=== PATIENT | male | born 1930 | race Native Hawaiian/Other Pacific Islander ===

== ENCOUNTER 2017-06-09 16:54 | Inpatient (IN) | payer OTHER ==
[~2017-06-09] VITALS: Ht 187.9 cm; Wt 91.7 kg
[~2017-06-09 16:54] MED LIST: ACETAMINOPHEN-H1 TA2 PO; AMARYL; AMLODIPINE BESY10 MG PO; AMOXICILLIN500 M3 PO; FLEXERIL; FLUOXETINE HYDR20 M1 PO; LISINOPRIL; LISINOPRIL/HCTZ1 TA4 PO; LISINOPRIL20 MG PO; NEURONTIN600 MG PO; OPTIVE SENSITI0.4 ML OP; ULTRAM50 MG PO
[2017-06-09 16:57] VITALS: BP 198/93
[2017-06-09 18:18] LABS: BASO # 0.1 10*3/uL (0.0-0.1); BASO % 0.5 % (0.0-1.0); EOS % 0.4 % (1.0-4.0); HEMATOCRIT 44.3 % (42.0-52.0); HEMOGLOBIN 14.8 g/dl (14.0-18.0); LYMPH # 1.1 10*3/uL (1.3-4.4); LYMPH % 11.2 % (27.0-41.0); MEAN CELL VOLUME 94.3 fl (80.0-94.0); MEAN CORPUSCULAR HGB 31.5 pg (27.0-31.0); MEAN CORPUSCULAR HGB CONC 33.4 g/dl (33.0-37.0); MEAN PLATELET VOLUME 10.6 fl (9.6-12.3); MONO # 0.9 10*3/uL (0.1-1.0); MONO % 8.8 % (3.0-9.0); NEUT % 78.8 % (47.0-73.0); PLATELET COUNT AUTOMATED 159 10*3/uL (130-400); RED CELL DISTRI WIDTH 13.4 % (0-14.5); WHITE BLOOD COUNT 10.1 10*3/uL (4.8-10.8)
[2017-06-09 18:21] VITALS: BP 200/88
[2017-06-09 18:27] LABS: INTERNATIONAL NORM RATIO 1.1 (2.0-3.5)
[2017-06-09 18:34] LABS: ALBUMIN 2.9 gm/dl (3.1-4.5); ALKALINE PHOSPHATASE 111 U/L (45-117); BUN 17 mg/dl (7-24); CHLORIDE 108 mmol/L (98-107); CREATININE 1.23 mg/dL (0.70-1.30); POTASSIUM 3.3 mmol/L (3.5-5.1); SGOT/AST 11 IU/L (3-35); SGPT/ALT 9 U/L (12-78); SODIUM 141 mmol/L (136-145); TOTAL PROTEIN 6.8 gm/dL (6.4-8.2)
[2017-06-09 19:46] VITALS: BP 180/110
[2017-06-09 20:37] VITALS: BP 149/64
[2017-06-09 21:00] VITALS: BP 164/72
[2017-06-09 21:15] VITALS: BP 164/72
[2017-06-09] MEDS ORDERED: FLUOXETINE HYDR20 M1 PO (22:05)
[2017-06-09] MEDS ORDERED: NEURONTIN300 MG PO (22:08)
--- NOTE | 2017-06-09 22:19 | NUR ---
A 87, admitted to , under the services of DMITRY Castaneda DO with a diagnosis of EFFUSION OF RIGHT KNEE. Chief complaint is PAIN AND WEAKNESS WHILE STANDING AND AMBULAING & HYPERTENSION. Patient arrived via stretcher from ER. Monitor applied. Initial assessment completed. Vital signs taken and recorded. DMITRY CASTANEDA DO notified of admission to the unit. Orders received. See assessment for past medical history, medications and allergies. Patient and/or family oriented to unit. [address] visitation policy reviewed, Medication Reconciliation competed with patient and family member. Clothing/patient valuable form completed. JE AWAN
--- NOTE | 2017-06-09 22:50 | NUR ---
UNABLE TO PHONE CONSULT IN FOR DR. HAM BECAUSE OF THE WEEKEND HOURS. WILL PASS ON TO DAYSHIFT NURSE.
[2017-06-10] VITALS: BP 175/68
--- NOTE | 2017-06-10 03:35 | NUR ---
Shift chart check completed.
[2017-06-10 05:54] LABS: BASO % 0.1 % (0.0-1.0); HEMATOCRIT 38.3 % (42.0-52.0); HEMOGLOBIN 13.3 g/dl (14.0-18.0); LYMPH # 0.6 10*3/uL (1.3-4.4); LYMPH % 8.7 % (27.0-41.0); MEAN CELL VOLUME 93.6 fl (80.0-94.0); MEAN CORPUSCULAR HGB 32.5 pg (27.0-31.0); MEAN CORPUSCULAR HGB CONC 34.7 g/dl (33.0-37.0); MEAN PLATELET VOLUME 11.3 fl (9.6-12.3); MONO # 0.1 10*3/uL (0.1-1.0); NEUT # 6.3 10*3/uL (2.3-7.9); NEUT % 88.9 % (47.0-73.0); PLATELET COUNT AUTOMATED 144 10*3/uL (130-400); RED BLOOD COUNT 4.09 10*6/uL (4.50-5.90); RED CELL DISTRI WIDTH 13.4 % (0-14.5); WHITE BLOOD COUNT 7.1 10*3/uL (4.8-10.8)
[2017-06-10 06:15] LABS: ALBUMIN 2.3 gm/dl (3.1-4.5); ALKALINE PHOSPHATASE 101 U/L (45-117); BUN 22 mg/dl (7-24); CHLORIDE 110 mmol/L (98-107); CHOLESTEROL 165 mg/dL (<200); CREATININE 1.09 mg/dL (0.70-1.30); HDL CHOLESTEROL 38 mg/dl (40-60); LDL CHOLESTEROL 111 mg/dL (9-159); MAGNESIUM 2.3 mg/dL (1.5-2.1); PHOSPHOROUS 1.9 mg/dL (2.5-4.9); SGOT/AST 11 IU/L (3-35); SGPT/ALT 10 U/L (12-78); SODIUM 140 mmol/L (136-145); TOTAL PROTEIN 5.9 gm/dL (6.4-8.2); TRIGLYCERIDES 79 mg/dl (<150); VLDL CHOLESTEROL 16 mg/dL (6-40)
[2017-06-10 06:18] LABS: ACT PARTIAL THROMBO TIME 26.9 SECONDS (20.8-31.5)
--- NOTE | 2017-06-10 06:37 | NUR ---
PATIENT HAD A DIFFICULT TIME VOIDING THIS MORNING. FINALLY VOIDED 300 AND PVR 337 OF DARK TIARRA URINE.
[2017-06-10 07:39] LABS: VITAMIN D, 25-HYDROXY 31.7 ng/mL (30-100)
[2017-06-10 08:00] VITALS: BP 175/75
--- NOTE | 2017-06-10 08:04 | NUR ---
DR. HAM'S OFFICE STAFF NOTIFIED OF CONSULT RE: JOINT EFFUSION
--- NOTE | 2017-06-10 08:48 | NUR ---
MEDICATED WITH PRN PO DULCOLAX FOR CONSTIPATION.
[2017-06-10 12:00] VITALS: BP 161/77
--- NOTE | 2017-06-10 14:33 | NUR ---
PHYSICAL THERAPY PAtient evaluated on 4, full evaluation to follow. Continue with PT as per plan of care with fall, right knee effusion and pian and acute debility precautions. SNF for impaired mobility versus home with home health RN and PT. PAtient is moderate complexity via chart review, tests and evaluation: [id number]. Thank you for this referral. Chel Gutiérrez,PT
--- NOTE | 2017-06-10 14:42 | NUR ---
PATIENT HAVING MULTIPLE PAC'S/IRREGULAR HEART RATE, WHOLESALE ACCOUNT MANAGER NOTIFIED THAT PATIENT MAY POSSIBLY BE HAVING AFIB D/T MANY P WAVES NOT VISIBLE AND RATE REMAINS IRREGULAR. STAT EKG OBAINED, NSR W/BBB NOTED AT TIME OF EKG, PATIENT CONTINUES TO HAVE FREQUENT PAC'S AND IRREGULAR RHTYTHM.
--- NOTE | 2017-06-10 14:57 | NUR ---
PATIENT HAVING URGE TO VOID BUT HAS NOT VOIDED THIS SHIFT. BLADDER SCANNED FOR >999ML URINE AND OBTAINED ORDER TO STRAIGHT CATH X 1.
[2017-06-10 16:00] VITALS: BP 168/77
--- NOTE | 2017-06-10 16:48 | NUR ---
PATIENT ABLE TO VOID 150ML WITH DIFFICULTY/HESITANCY, CLEAR DARK TIARRA URINE. ATTEMPTED STRAIGHT CATHETERIZATION, UNABLE TO MANEUVER PROSTATE, ATTEMPTED STRAIGHT CATH WITH 22FR COUDE CATHETER, UNABLE TO OBTAIN URINE. 2ND RN ATTEMPTED WITH 22FR COUDE CATHETER, UNABLE TO OBTAIN URINE. PATIENT ABLE TO VOID 150 ADDITIONAL URINE AFTER THE ATTEMPTS, STATES FEELING SOME RELIEF OF BLADDER URGE AND PRESSURE. ADMINISTERED FIRST DOSE OF FLOMAX (NEW ORDER) AND TITLE VEHICLE SERVICE ATTENDANT ANA LILIA NOTIFIED THAT URINE UNOBTAINABLE D/T UNABLE TO PASS CATHETER VIA URETHRA D/T RESTANCE. PER TITLE VEHICLE SERVICE ATTENDANT, PATIENT TO BE MONITORED FOR INTAKE AND OUTPUT AND HE WILL BE SEEN IN THE MORNING.
--- NOTE | 2017-06-10 17:32 | NUR ---
MEDICATED WITH MILK OF MAGNESIA FOR CONSTIPATION; DULCOLAX NOT YET EFFECTIVE.
--- NOTE | 2017-06-10 17:39 | NUR ---
PATIENT HAVING SOFT, SMALL AMOUNT OF BM, INADEQUATE RESULT OF LAXATIVE SO FAR, PER PATIENT.
--- NOTE | 2017-06-10 18:42 | NUR ---
NOTIFIED DR. HAM'S AFTER HOURS ANSWERING SERVICE OF THE CONSULT RE: RIGHT KNEE EFFUSION.
--- NOTE | 2017-06-10 18:46 | NUR ---
DR. HAM IS ENTERING LAB ORDERS FROM [facility].
[2017-06-10 20:00] VITALS: BP 170/66
--- NOTE | 2017-06-10 20:10 | NUR ---
PATIENT RESTING IN BED. STATES HIS KNEE PAIN IS AT A 0 RIGHT NOW AND THE SWELLING HAS GONE DOWN A LOT. NO SXS OF DISTRESS, RESPIRATIONS EASY/REGULAR. CALL LIGHT IS IN REACH. WILL MONITOR
[2017-06-11] VITALS: BP 143/65
--- NOTE | 2017-06-11 00:51 | NUR ---
PATIENT SLEEPING, NO SXS OF DISTRESS, CALL LIGHT IN REACH
--- NOTE | 2017-06-11 03:30 | NUR ---
PATIENT IS RESTING QUIETLY IN BED WITH NO VOICED COMPLAINTS AT THIS TIME. RESPIRATIONS EASY/REGULAR. NO SXS OF DISTRESS. CALL LIGHT IS IN REACH. WILL CONTINUE TO MONITOR.
--- NOTE | 2017-06-11 04:20 | NUR ---
BLADDER SCANNED PATIENT WITH PVR 20 ML. PATIENT ALSO WANTED TO GET UP AND WALK THE HALLS. HE WALKED A SHORT DISTANCE OUT OF HIS ROOM WITH WALKER ASSISTANCE AND RN. HE TOLERATED IT WELL AND STATED IT MADE HIS KNEE FEEL 10 TIMES BETTER. HE IS NOW OOB IN CHAIR AND STATES HE IS READY TO GO HOME NOW. RESPIRATIONS EASY/REGULAR, NO SXS OF DISTRESS. CALL LIGHT IS IN REACH. WILL MONITOR.
[2017-06-11 05:54] LABS: IRON 46 ug/dL (65-175); TOTAL IRON BINDING CAPACITY 192 ug/dl (250-450)
[2017-06-11 05:56] LABS: RETICULOCYTE % 1.47 % (0.50-2.50)
--- NOTE | 2017-06-11 06:45 | NUR ---
PATIENT WAS PLEASANT/COOPERATIVE THROUGHOUT SHIFT. NO VOICED COMPLAINTS. RESPIRATIONS EASY/REG. CALL LIGHTIS IN REACH.
[2017-06-11 08:00] VITALS: BP 142/71
--- NOTE | 2017-06-11 08:00 | NUR ---
IN RECLINER AWAKE ALERT AND ORIENTED X3, NO S/S OF DISTRESS. STATES RIGHT KNEE IS FEELING A LOT BETTER TODAY AND THAT IT DOES NOT HURT BAD. NO S/S OF DISTRESS NOTED, SEE ASSESS. WILL CONT TO MONITOR. CALL LIGHT IN REACH.
--- NOTE | 2017-06-11 08:04 | NUR ---
PHYSICAL THERAPY Pt seen this AM 1:1 for his physical therapy treatment. Transfer supine/sit MOD A X 1, sitting balance from [facility] X 1, to supervision x 1 after 9 min. Feroz said that his right knee, he was not having as much pain this morning. Transfer sit/stand and up on wheeled walker standing balance MOD A X 1, with cueing for standing balance and just to stand. Followed by gait with W/W total 35' X 1, MOD A X 1, cueing to stand tall and each step to just lock his knees out and he could. Pt not safe up ambulating by himself he would fall. Pt up in his bedside chair call light, and tray in front. Nursing in at this time 24 min. TOMAS GUERRERO TECHNICAL TRAINING SPECIALIST.
[2017-06-11 08:13] LABS: BASO % 0.1 % (0.0-1.0); HEMATOCRIT 40.5 % (42.0-52.0); HEMOGLOBIN 13.7 g/dl (14.0-18.0); LYMPH # 1.4 10*3/uL (1.3-4.4); LYMPH % 10.7 % (27.0-41.0); MEAN CELL VOLUME 94.4 fl (80.0-94.0); MEAN CORPUSCULAR HGB 31.9 pg (27.0-31.0); MEAN CORPUSCULAR HGB CONC 33.8 g/dl (33.0-37.0); MEAN PLATELET VOLUME 11.2 fl (9.6-12.3); MONO % 7.7 % (3.0-9.0); NEUT # 10.2 10*3/uL (2.3-7.9); NEUT % 81.2 % (47.0-73.0); PLATELET COUNT AUTOMATED 159 10*3/uL (130-400); RED BLOOD COUNT 4.29 10*6/uL (4.50-5.90); RED CELL DISTRI WIDTH 13.2 % (0-14.5); WHITE BLOOD COUNT 12.6 10*3/uL (4.8-10.8)
--- NOTE | 2017-06-11 09:00 | NUR ---
case management talked with patient yesterday regarding discharge plans, he lives at home with his daughter, was getting around independently until lately, has a cane and walker at home, patient stated that he wanted to go home with his daughter and refused any home services. today case management again talked with patient, informed him that physical therapy recommendations were a short term shelter, patient refused this, stated that he wanted to go home, also discussed with him VNA and he was receptive to this, patient was given local companies, and chose [facility], meeting/event planner will send referral to [facility] for when patient is medically stable for discharge
[2017-06-11 11:03] LABS: FERRITIN 102.3 ng/mL (22.0-322.0)
[2017-06-11 12:00] VITALS: BP 145/65
--- NOTE | 2017-06-11 14:30 | NUR ---
DR HAM CAME TO SEE PT. CONSENT OBTAINED TO ASPIRATE FLUID FROM RIGHT KNEE. PROCEDURE DONE AND PT TOLERATED WELL.
--- NOTE | 2017-06-11 15:00 | NUR ---
LISETH NOTIFIED PT HAS NOT VOIDED THIS SHIFT AFTER HE STATED THAT HE HAS, BLADDER SCANNED HIM FOR >999. LISETH SUNG CAME TO FLOOR AND PUT A ACEVEDO CATH IN HIM. PT TOLERATED. IMMEDIATE RETURN OF BLOOD TINGED URINE. WILL CONT TO MONITOR.
[2017-06-11 15:19] LABS: BILIRUBIN NEGATIVE (NEGATIVE); BLOOD 3+ (NEGATIVE); CLARITY CLEAR (CLEAR); COLOR YELLOW (YELLOW); GLUCOSE NEGATIVE (NEGATIVE); KETONE NEGATIVE (NEGATIVE); LEUKO ESTERASE NEGATIVE (NEGATIVE); NITRITE NEGATIVE (NEGATIVE); SPECIFIC GRAVITY 1.025 (1.005-1.030); UROBILINOGEN 0.2 E.U./dl (0.2-1.0)
[2017-06-11 15:34] LABS: BACTERIA TRACE; FINE GRANULAR CAST 0-2; RBC TNTC rbc/hpf (0-2)
[2017-06-11 16:00] VITALS: BP 146/63
--- NOTE | 2017-06-11 17:51 | NUR ---
PHYSICIAN WAS NOTIFIED OF DR. TOMAS BRASHER. RESPONSE OF NOTIFICATION WAS NO NEW ORDERS. REYNALDO VARGAS
[2017-06-11 18:56] LABS: BODY FLUID WBC 1800 /uL
[2017-06-11 20:00] VITALS: BP 151/68
--- NOTE | 2017-06-11 20:10 | NUR ---
PATIENT RESTING IN BED. RESPIRATIONS EASY/REG WITH NO SXS OF DISTRESS. NO VOICED COMPLAINTS AT THIS TIME. HEPARIN DRIP MAINTAINED PER ORDER. HE HAS A ANASTASIA BANDAGE TO HIS LEFT FOOT THAT HE IS REFUSING TO BE REMOVED. EXPOSED SKIN IS DRY. PPP. CALL LIGHT IN REACH. WILL MONITOR.
--- NOTE | 2017-06-11 20:15 | NUR ---
PATIENT RESTING IN BED WATCHING TV. NO COMPLAINTS AT THIS TIME. NO SXS OF DISTRESS. RESPIRATIONS EASY/REGULAR. DENIES PAIN. ACEVEDO IS DRAINING DARK TIARRA/BLOODY URINE. CALL LIGHT IS IN REACH. WILL MONITOR.
[2017-06-12] VITALS: BP 148/71
[2017-06-12 06:10] LABS: HEMATOCRIT 37.5 % (42.0-52.0); HEMOGLOBIN 12.6 g/dl (14.0-18.0); LYMPH # 0.9 10*3/uL (1.3-4.4); LYMPH % 8.9 % (27.0-41.0); MEAN CELL VOLUME 93.3 fl (80.0-94.0); MEAN CORPUSCULAR HGB 31.3 pg (27.0-31.0); MEAN CORPUSCULAR HGB CONC 33.6 g/dl (33.0-37.0); MEAN PLATELET VOLUME 11.4 fl (9.6-12.3); MONO # 0.6 10*3/uL (0.1-1.0); MONO % 5.8 % (3.0-9.0); NEUT # 8.4 10*3/uL (2.3-7.9); PLATELET COUNT AUTOMATED 160 10*3/uL (130-400); RED BLOOD COUNT 4.02 10*6/uL (4.50-5.90); RED CELL DISTRI WIDTH 13.2 % (0-14.5); WHITE BLOOD COUNT 9.9 10*3/uL (4.8-10.8)
[2017-06-12 06:37] LABS: ALBUMIN 2.2 gm/dl (3.1-4.5); ALKALINE PHOSPHATASE 86 U/L (45-117); BUN 28 mg/dl (7-24); CHLORIDE 109 mmol/L (98-107); CREATININE 1.04 mg/dL (0.70-1.30); POTASSIUM 4.3 mmol/L (3.5-5.1); SGOT/AST 7 IU/L (3-35); SGPT/ALT 10 U/L (12-78); SODIUM 139 mmol/L (136-145); TOTAL PROTEIN 5.3 gm/dL (6.4-8.2)
[2017-06-12 08:00] VITALS: BP 150/80
[2017-06-12 08:21] LABS: BF MACROPHAGES 6 %; BF MONOCYTES 3 %; BF NEUTROPHILS 91 %
--- NOTE | 2017-06-12 08:25 | NUR ---
IN BED AWAKE ALERT AND ORIENTED X3, WORKING WITH THERAPY. NO S/S OF DISTRESS. RIGHT KNEE SWELLING IS DOWN COMPARED TO YESTERDAY. PT STATES PAIN IS GONE. ACEVEDO DRAINING PATENT YELLOW BLOOD TINGED URINE. NO S/S OF DISTRESS. SEE ASSESS. CALL LIGHT IN REACH. LABS REVIEWED.
--- NOTE | 2017-06-12 10:16 | NUR ---
PER LISETH SUNG OK TO KEEP ACEVEDO CATH IN PLACE DUE TO URINARY RETENTION.
--- NOTE | 2017-06-12 11:44 | NUR ---
PHYSICAL THERAPY Feroz seen this AM 1:1 for his therapy. Pt transfer supine/sit MOD A X 1, sitting balance supervision x 1, X 5 min. Sit/stand, standing balance with wheeled walker MOD A X 1, with cueing for safety. Followed by gait 45' X 1, W/W and MOD TAP PULLER X 1, with cueing for gait safety which he needs. Followed by Feroz using his bathroom, then gait to his bedside chair 15' X 1, pt with call light and phone. TOMAS GUERRERO TIME LOCK EXPERT.
[2017-06-12 12:00] VITALS: BP 151/70
--- NOTE | 2017-06-12 12:57 | NUR ---
PATIENT NOT AVAILALBE FOR ECHO... EATING LUNCH.
[2017-06-12 13:12] LABS: BILIRUBIN NEGATIVE (NEGATIVE); BLOOD 3+ (NEGATIVE); CLARITY CLOUDY (CLEAR); COLOR YELLOW (YELLOW); GLUCOSE 2+ (NEGATIVE); KETONE NEGATIVE (NEGATIVE); LEUKO ESTERASE NEGATIVE (NEGATIVE); NITRITE NEGATIVE (NEGATIVE); PH 5.5 (5.0-9.0); SPECIFIC GRAVITY 1.025 (1.005-1.030)
[2017-06-12 13:17] LABS: RBC TNTC rbc/hpf (0-2)
[2017-06-12 14:06] LABS: ACID FAST SMEAR Negative (.); ACID FAST SPEC PROCESSING Concentration (.)
--- NOTE | 2017-06-12 14:45 | NUR ---
ORDER RECEIVED TO REMOVE CURTIS DELATORRE FROM DR MULLER. SPOKE TO LISETH SUNG AND SHE SAID YES OK TO REMOVE THAT SHE SPOKE WITH DR MULLER.
[2017-06-12 16:00] VITALS: BP 163/59
[2017-06-12 20:00] VITALS: BP 113/88
[2017-06-13] VITALS: BP 115/82
--- NOTE | 2017-06-13 00:08 | NUR ---
PATIENT RESTIN OOB IN CHAIR. NO VOICED COMPLAINTS AT THIS TIME. HEPARIN DRIP MAINTAINED ORDERED. RESPIRATIONS EASY/REGULAR. CALL LIGHT IN REACH.
--- NOTE | 2017-06-13 03:19 | NUR ---
SLEEPING. NO SXS OF DISTRESS. CALL LIGHT IN REACH
--- NOTE | 2017-06-13 05:23 | NUR ---
SPOKE TO DR NORMAN REGARDING PATIENT NOT VOIDING SINCE CATHETER REMOVAL. I BLADDER SCANNED WITH A RESULT OF >999. ORDERS TO STRAIGHT CATH RECEIVED.
--- NOTE | 2017-06-13 06:02 | NUR ---
ATTEMPTED TO STRAIGHT CATH PATIENT. HE WAS ONLY ABLE TO URINATE SMALL AMOUNTS AROUND THE CATHETER. RESCANNED PATIENT WITH RESULTS OF >546. ATTEMPTED COUDE AND RESISTANCE MET. DR NORMAN WAS NOTIFIED AND INSTRUCTED TO TRY AGAIN IN A LITTLE WHILE.
--- NOTE | 2017-06-13 06:39 | NUR ---
[facility] NURSE ATTEMPTED CATHETERIZATION. SHE ALSO MET RESISTANCE AND WAS UNABLE TO DRAIN BLADDER. SCANNED AND RESULT WAS >700. DR NORMAN NOTIFIED. NO NEW ORDERS AT THIS TIME
[2017-06-13 08:00] VITALS: BP 168/84
[2017-06-13] MEDS ORDERED: FLOMAX0.4 MG PO (09:18)
[2017-06-13] MEDS ORDERED: FEROSUL325 MG PO (09:18)
--- NOTE | 2017-06-13 10:35 | NUR ---
Patient is being discharged to home with home health via [facility]. Recieved order, faxed clinicals to
--- NOTE | 2017-06-13 11:13 | NUR ---
PHYSICAL THERAPY CO-SIGN I approve of the Phyical Therapy notes written above. SULMA STEVEN PT
--- NOTE | 2017-06-13 11:32 | NUR ---
DISCHARGED IN CARE OF DAUGHTER. PT WAS GOING TO DR LUDWIG OFFICE. INSTRUCTIONS AND PERSCRIPTIONS REVIEWED WITH PT AND DAUGHTER.
== END 2017-06-13 10:08 | disposition home health service (06) | DRG 565 ==
LOC: ED 16:54 → EDHOLD 20:19 → 4E 20:19
PROVIDERS: Hospitalist; Orthopaedic Surgery; Physician Assistant; Registered Nurse; ADMIT Internal Medicine
PROC: 0S9C3ZZ Drainage of Right Knee Joint, Percutaneous Approach (ICD-10-PCS; principal; 2017-06-11)
DX: M25.461 Effusion, right knee (principal); E44.0 Moderate protein-calorie malnutrition; E11.65 Type 2 diabetes mellitus with hyperglycemia; E83.41 Hypermagnesemia; I10 Essential (primary) hypertension; E83.39 Other disorders of phosphorus metabolism; E83.51 Hypocalcemia; M71.21 Synovial cyst of popliteal space [Baker], right knee; Z96.643 Presence of artificial hip joint, bilateral; R33.9 Retention of urine, unspecified; D50.9 Iron deficiency anemia, unspecified; Z72.0 Tobacco use; Z79.899 Other long term (current) drug therapy; Z71.6 Tobacco abuse counseling; Z68.25 Body mass index [BMI] 25.0-25.9, adult

== ENCOUNTER 2017-10-03 13:28 | Inpatient (IN) | payer OTHER ==
[~2017-10-03] VITALS: Ht 177.8 cm; Wt 94.5 kg
[~2017-10-03 13:28] MED LIST changes: +FEROSUL325 MG PO; +FLOMAX0.4 MG PO; +NEURONTIN300 MG PO
[2017-10-03 13:46] VITALS: BP 150/60
[2017-10-03 13:53] LABS: BASO % 0.4 % (0.0-1.0); EOS # 0.1 10*3/uL (0.0-0.4); EOS % 0.5 % (1.0-4.0); HEMATOCRIT 39.5 % (42.0-52.0); HEMOGLOBIN 13.7 g/dl (14.0-18.0); LYMPH # 1.1 10*3/uL (1.3-4.4); LYMPH % 11.8 % (27.0-41.0); MEAN CELL VOLUME 91.2 fl (80.0-94.0); MEAN CORPUSCULAR HGB 31.6 pg (27.0-31.0); MEAN CORPUSCULAR HGB CONC 34.7 g/dl (33.0-37.0); MEAN PLATELET VOLUME 10.4 fl (9.6-12.3); MONO # 0.7 10*3/uL (0.1-1.0); NEUT # 7.4 10*3/uL (2.3-7.9); NEUT % 80.1 % (47.0-73.0); PLATELET COUNT AUTOMATED 160 10*3/uL (130-400); RED BLOOD COUNT 4.33 10*6/uL (4.50-5.90); RED CELL DISTRI WIDTH 14.6 % (0-14.5); WHITE BLOOD COUNT 9.3 10*3/uL (4.8-10.8)
[2017-10-03 14:08] LABS: ALBUMIN 3.5 gm/dl (3.1-4.5); ALKALINE PHOSPHATASE 128 U/L (45-117); BUN 28 mg/dl (7-24); CHLORIDE 106 mmol/L (98-107); CREATININE 1.48 mg/dL (0.70-1.30); POTASSIUM 3.7 mmol/L (3.5-5.1); SGOT/AST 6 IU/L (3-35); SGPT/ALT 17 U/L (12-78); SODIUM 140 mmol/L (136-145); TOTAL PROTEIN 6.7 gm/dL (6.4-8.2)
[2017-10-03 14:09] LABS: TROPONIN I < 0.015 ng/ml (<0.045)
[2017-10-03 14:49] VITALS: BP 138/60
[2017-10-03 15:49] VITALS: BP 142/60
[2017-10-03 20:00] VITALS: BP 158/86
[2017-10-03 21:12] LABS: BILIRUBIN NEGATIVE (NEGATIVE); BLOOD NEGATIVE (NEGATIVE); CLARITY CLEAR (CLEAR); COLOR YELLOW (YELLOW); GLUCOSE NEGATIVE (NEGATIVE); KETONE NEGATIVE (NEGATIVE); LEUKO ESTERASE NEGATIVE (NEGATIVE); NITRITE NEGATIVE (NEGATIVE); SPECIFIC GRAVITY 1.025 (1.005-1.030)
[2017-10-03 21:24] LABS: WBC 0-2 wbc/hpf (0-5)
[2017-10-04] VITALS: BP 153/59
[2017-10-04 07:17] LABS: BASO # 0.1 10*3/uL (0.0-0.1); BASO % 0.7 % (0.0-1.0); EOS # 0.2 10*3/uL (0.0-0.4); EOS % 2.5 % (1.0-4.0); HEMOGLOBIN 12.1 g/dl (14.0-18.0); LYMPH # 1.9 10*3/uL (1.3-4.4); LYMPH % 27.4 % (27.0-41.0); MEAN CELL VOLUME 91.4 fl (80.0-94.0); MEAN CORPUSCULAR HGB 31.6 pg (27.0-31.0); MEAN CORPUSCULAR HGB CONC 34.6 g/dl (33.0-37.0); MEAN PLATELET VOLUME 10.4 fl (9.6-12.3); MONO # 0.8 10*3/uL (0.1-1.0); MONO % 10.7 % (3.0-9.0); NEUT # 4.1 10*3/uL (2.3-7.9); NEUT % 58.4 % (47.0-73.0); PLATELET COUNT AUTOMATED 143 10*3/uL (130-400); RED BLOOD COUNT 3.83 10*6/uL (4.50-5.90); RED CELL DISTRI WIDTH 14.6 % (0-14.5); WHITE BLOOD COUNT 7.1 10*3/uL (4.8-10.8)
[2017-10-04 07:32] LABS: ALBUMIN 2.9 gm/dl (3.1-4.5); BUN 25 mg/dl (7-24); CHLORIDE 109 mmol/L (98-107); POTASSIUM 3.5 mmol/L (3.5-5.1); SGOT/AST 9 IU/L (3-35); SODIUM 143 mmol/L (136-145)
[2017-10-04 07:40] LABS: ACT PARTIAL THROMBO TIME 25.6 SECONDS (20.8-31.5)
[2017-10-04 07:45] LABS: ALKALINE PHOSPHATASE 102 U/L (45-117); PHOSPHOROUS 2.6 mg/dL (2.5-4.9); SGPT/ALT 11 U/L (12-78); TOTAL PROTEIN 5.5 gm/dL (6.4-8.2)
[2017-10-04 08:00] VITALS: BP 163/72
[2017-10-04 12:00] VITALS: BP 127/56
[2017-10-04 16:00] VITALS: BP 160/62
[2017-10-04 20:00] VITALS: BP 170/72
[2017-10-05] VITALS: BP 164/70
[2017-10-05 07:42] LABS: BASO # 0.1 10*3/uL (0.0-0.1); BASO % 0.7 % (0.0-1.0); EOS # 0.2 10*3/uL (0.0-0.4); EOS % 2.7 % (1.0-4.0); HEMATOCRIT 35.6 % (42.0-52.0); HEMOGLOBIN 12.4 g/dl (14.0-18.0); LYMPH # 1.9 10*3/uL (1.3-4.4); LYMPH % 24.3 % (27.0-41.0); MEAN CELL VOLUME 92.2 fl (80.0-94.0); MEAN CORPUSCULAR HGB 32.1 pg (27.0-31.0); MEAN CORPUSCULAR HGB CONC 34.8 g/dl (33.0-37.0); MEAN PLATELET VOLUME 10.3 fl (9.6-12.3); MONO # 0.8 10*3/uL (0.1-1.0); MONO % 10.2 % (3.0-9.0); NEUT # 4.7 10*3/uL (2.3-7.9); NEUT % 61.6 % (47.0-73.0); PLATELET COUNT AUTOMATED 142 10*3/uL (130-400); RED BLOOD COUNT 3.86 10*6/uL (4.50-5.90); RED CELL DISTRI WIDTH 14.6 % (0-14.5); WHITE BLOOD COUNT 7.7 10*3/uL (4.8-10.8)
[2017-10-05 08:00] VITALS: BP 162/79
[2017-10-05 08:22] LABS: ALBUMIN 2.8 gm/dl (3.1-4.5); ALKALINE PHOSPHATASE 109 U/L (45-117); BUN 19 mg/dl (7-24); CHLORIDE 107 mmol/L (98-107); POTASSIUM 3.5 mmol/L (3.5-5.1); SGOT/AST 16 IU/L (3-35); SGPT/ALT 17 U/L (12-78); SODIUM 139 mmol/L (136-145); TOTAL PROTEIN 5.5 gm/dL (6.4-8.2)
[2017-10-05 12:00] VITALS: BP 155/85
[2017-10-05 16:00] VITALS: BP 171/65
[2017-10-05 20:00] VITALS: BP 163/70
[2017-10-06] VITALS: BP 136/64
[2017-10-06 08:00] VITALS: BP 147/71
[2017-10-06 12:00] VITALS: BP 140/63
[2017-10-06 16:16] VITALS: BP 164/68
[2017-10-06 20:07] VITALS: BP 181/75
[2017-10-07] VITALS: BP 154/65
[2017-10-07 04:00] VITALS: BP 121/75
[2017-10-07 08:00] VITALS: BP 151/68
[2017-10-07 12:00] VITALS: BP 142/62
[2017-10-07 16:00] VITALS: BP 173/71
[2017-10-07 20:00] VITALS: BP 174/68
[2017-10-08] VITALS (9 sets, daily range): BP systolic 135–178; BP diastolic 61–89
[2017-10-08 18:38] LABS: BODY FLUID WBC 2198 /uL
[2017-10-08 19:28] LABS: BF MACROPHAGES 23 %; BF NEUTROPHILS 77 %
[2017-10-09] VITALS: BP 156/81
[2017-10-09 04:00] VITALS: BP 121/52
[2017-10-09 06:58] LABS: ALBUMIN 2.6 gm/dl (3.1-4.5); ALKALINE PHOSPHATASE 92 U/L (45-117); BASO # 0.1 10*3/uL (0.0-0.1); BASO % 0.6 % (0.0-1.0); BUN 20 mg/dl (7-24); CHLORIDE 101 mmol/L (98-107); CREATININE 1.18 mg/dL (0.70-1.30); EOS # 0.2 10*3/uL (0.0-0.4); EOS % 1.5 % (1.0-4.0); HEMATOCRIT 36.9 % (42.0-52.0); HEMOGLOBIN 12.6 g/dl (14.0-18.0); LYMPH % 18.7 % (27.0-41.0); MEAN CELL VOLUME 92.7 fl (80.0-94.0); MEAN CORPUSCULAR HGB 31.7 pg (27.0-31.0); MEAN CORPUSCULAR HGB CONC 34.1 g/dl (33.0-37.0); MEAN PLATELET VOLUME 10.2 fl (9.6-12.3); MONO # 1.5 10*3/uL (0.1-1.0); MONO % 14.1 % (3.0-9.0); NEUT # 6.8 10*3/uL (2.3-7.9); NEUT % 64.6 % (47.0-73.0); PLATELET COUNT AUTOMATED 158 10*3/uL (130-400); RED BLOOD COUNT 3.98 10*6/uL (4.50-5.90); RED CELL DISTRI WIDTH 14.6 % (0-14.5); SGOT/AST 13 IU/L (3-35); SGPT/ALT 22 U/L (12-78); SODIUM 134 mmol/L (136-145); TOTAL PROTEIN 6.2 gm/dL (6.4-8.2); WHITE BLOOD COUNT 10.5 10*3/uL (4.8-10.8)
[2017-10-09 08:00] VITALS: BP 127/58
[2017-10-09 12:00] VITALS: BP 116/50
[2017-10-09 16:00] VITALS: BP 132/58
[2017-10-09 20:00] VITALS: BP 150/60
[2017-10-09 21:56] LABS: BILIRUBIN NEGATIVE (NEGATIVE); BLOOD NEGATIVE (NEGATIVE); CLARITY SL CLOUDY (CLEAR); COLOR YELLOW (YELLOW); GLUCOSE TRACE (NEGATIVE); KETONE NEGATIVE (NEGATIVE); LEUKO ESTERASE NEGATIVE (NEGATIVE); NITRITE NEGATIVE (NEGATIVE); UROBILINOGEN 0.2 E.U./dl (0.2-1.0)
[2017-10-09 22:08] LABS: BACTERIA 1+; MUCOUS 1+
[2017-10-09 22:09] LABS: EPITHELIAL CELLS 0-2
[2017-10-10] VITALS: BP 137/52
[2017-10-10 08:00] VITALS: BP 155/53
[2017-10-10 09:04] LABS: CREATININE 1.39 mg/dL (0.70-1.30); POTASSIUM 3.6 mmol/L (3.5-5.1)
[2017-10-10] MEDS ORDERED: NEURONTIN300 MG PO (10:47)
[2017-10-10 12:00] VITALS: BP 137/57
[2017-10-10 14:37] LABS: BF MACROPHAGES 15 %; BF NEUTROPHILS 85 %
[2017-10-10 14:45] LABS: BODY FLUID WBC 3775 /uL
[2017-10-11 12:09] LABS: ACID FAST SMEAR Negative (.); ACID FAST SPEC PROCESSING Concentration (.)
== END 2017-10-10 15:50 | disposition other institution (70) | DRG 682 ==
LOC: ED 13:28 → EDHOLD 15:19 → 4E 15:19 → EDHOLD 15:29 → 4E 15:35
PROVIDERS: Emergency Medicine; Family Medicine; Internal Medicine; Orthopaedic Surgery; Student in an Organized Health Care Education/Training Program
PROC: 0S9C3ZZ Drainage of Right Knee Joint, Percutaneous Approach (ICD-10-PCS; principal; 2017-10-08)
PROC: 0S9D3ZX Drainage of Left Knee Joint, Percutaneous Approach, Diagnostic (ICD-10-PCS; 2017-10-10)
DX: N17.0 Acute kidney failure with tubular necrosis (principal); G93.41 Metabolic encephalopathy; E11.65 Type 2 diabetes mellitus with hyperglycemia; E11.40 Type 2 diabetes mellitus with diabetic neuropathy, unspecified; F33.9 Major depressive disorder, recurrent, unspecified; G91.2 (Idiopathic) normal pressure hydrocephalus; M25.461 Effusion, right knee; E86.0 Dehydration; D50.9 Iron deficiency anemia, unspecified; N40.1 Benign prostatic hyperplasia with lower urinary tract symptoms; R74.8 Abnormal levels of other serum enzymes; I10 Essential (primary) hypertension; R33.8 Other retention of urine; M25.462 Effusion, left knee; M65.351 Trigger finger, right little finger; Z96.643 Presence of artificial hip joint, bilateral; E78.5 Hyperlipidemia, unspecified; Z79.899 Other long term (current) drug therapy; Z90.89 Acquired absence of other organs; Z87.891 Personal history of nicotine dependence

== ENCOUNTER 2017-10-17 03:37 | Emergency (ER) | payer OTHER ==
[~2017-10-17] VITALS: Ht 185.4 cm; Wt 99.8 kg
[2017-10-17 04:05] LABS: BASO # 0.1 10*3/uL (0.0-0.1); BASO % 0.3 % (0.0-1.0); EOS % 0.3 % (1.0-4.0); HEMATOCRIT 38.9 % (42.0-52.0); HEMOGLOBIN 13.2 g/dl (14.0-18.0); LYMPH # 1.3 10*3/uL (1.3-4.4); LYMPH % 9.1 % (27.0-41.0); MEAN CELL VOLUME 94.2 fl (80.0-94.0); MEAN CORPUSCULAR HGB CONC 33.9 g/dl (33.0-37.0); MEAN PLATELET VOLUME 9.5 fl (9.6-12.3); MONO # 0.9 10*3/uL (0.1-1.0); MONO % 6.2 % (3.0-9.0); NEUT % 82.6 % (47.0-73.0); PLATELET COUNT AUTOMATED 222 10*3/uL (130-400); RED BLOOD COUNT 4.13 10*6/uL (4.50-5.90); RED CELL DISTRI WIDTH 14.6 % (0-14.5); WHITE BLOOD COUNT 14.6 10*3/uL (4.8-10.8)
[2017-10-17 04:13] LABS: ABG BASE EXCESS -3.5 mmol/L (-2.0-2.0); ABG HCO3 19.6 mmol/l (22-26); ABG O2 SATURATION 99.6 % (95-97); ARTERIAL BLOOD GAS PCO2 34.7 mmHg (35-45); ARTERIAL BLOOD GAS PH 7.383 (7.35-7.45)
[2017-10-17 04:15] LABS: ACT PARTIAL THROMBO TIME 24.8 SECONDS (20.8-31.5); INTERNATIONAL NORM RATIO 1.1 (2.0-3.5)
[2017-10-17 04:22] LABS: CREATININE 1.55 mg/dL (0.70-1.30); TOTAL PROTEIN 6.2 gm/dL (6.4-8.2)
[2017-10-17 04:23] LABS: TROPONIN I 0.045 ng/ml (<0.045)
[2017-10-17 05:30] LABS: BILIRUBIN NEGATIVE (NEGATIVE); BLOOD 1+ (NEGATIVE); CLARITY CLEAR (CLEAR); COLOR YELLOW (YELLOW); GLUCOSE NEGATIVE (NEGATIVE); KETONE NEGATIVE (NEGATIVE); LEUKO ESTERASE NEGATIVE (NEGATIVE); NITRITE NEGATIVE (NEGATIVE); PH 5.5 (5.0-9.0); UROBILINOGEN 0.2 E.U./dl (0.2-1.0)
[2017-10-17 05:47] LABS: ABG O2 SATURATION 97.5 % (95-97); ARTERIAL BLOOD GAS PCO2 32.3 mmHg (35-45); ARTERIAL BLOOD GAS PH 7.378 (7.35-7.45)
[2017-10-17 05:51] LABS: WBC 0-2 wbc/hpf (0-5)
[2017-10-17 05:56] VITALS: BP 128/38
== END 2017-10-17 06:33 | disposition short-term general hospital (02) ==
LOC: ED 03:37
PROVIDERS: Student in an Organized Health Care Education/Training Program
DX: A41.9 Sepsis, unspecified organism (principal); J96.00 Acute respiratory failure, unspecified whether with hypoxia or hypercapnia; R65.20 Severe sepsis without septic shock; I44.2 Atrioventricular block, complete; I10 Essential (primary) hypertension; G62.9 Polyneuropathy, unspecified; Z79.899 Other long term (current) drug therapy; Z87.891 Personal history of nicotine dependence

== ENCOUNTER 2017-10-28 11:15 | Emergency (ER) | payer OTHER ==
[~2017-10-28] VITALS: Ht 180.3 cm; Wt 81.6 kg
[2017-10-28 15:35] LABS: HEMATOCRIT 35.7 % (42.0-52.0); HEMOGLOBIN 12.3 g/dl (14.0-18.0); MEAN CORPUSCULAR HGB 31.7 pg (27.0-31.0); MEAN CORPUSCULAR HGB CONC 34.5 g/dl (33.0-37.0); MEAN PLATELET VOLUME 9.5 fl (9.6-12.3); PLATELET COUNT AUTOMATED 226 10*3/uL (130-400); RED BLOOD COUNT 3.88 10*6/uL (4.50-5.90); RED CELL DISTRI WIDTH 14.2 % (0-14.5); WHITE BLOOD COUNT 15.6 10*3/uL (4.8-10.8)
[2017-10-28 15:48] LABS: BUN 26 mg/dl (7-24); CHLORIDE 100 mmol/L (98-107); CREATININE 1.24 mg/dL (0.70-1.30); POTASSIUM 3.7 mmol/L (3.5-5.1); SODIUM 134 mmol/L (136-145)
[2017-10-28 15:49] LABS: ACT PARTIAL THROMBO TIME 27.3 SECONDS (20.8-31.5)
[2017-10-28 16:03] LABS: POLYCHROMASIA SLIGHT; TOTAL CELLS COUNTED 100 #CELLS
[2017-10-28 16:04] LABS: PLATELET SUFFICIENCY NORMAL (NORMAL)
[2017-10-28 16:11] VITALS: BP 166/82
== END 2017-10-28 19:23 | disposition short-term general hospital (02) ==
LOC: ED 11:15
PROVIDERS: Emergency Medicine
DX: R33.9 Retention of urine, unspecified (principal); R05 Cough

== ENCOUNTER 2017-11-07 18:37 | Emergency (ER) | payer OTHER ==
[~2017-11-07] VITALS: Ht 180.3 cm; Wt 99.8 kg
[2017-11-07 19:55] LABS: BASO % 0.4 % (0.0-1.0); EOS # 0.3 10*3/uL (0.0-0.4); EOS % 2.7 % (1.0-4.0); HEMATOCRIT 28.3 % (42.0-52.0); HEMOGLOBIN 9.4 g/dl (14.0-18.0); LYMPH # 1.4 10*3/uL (1.3-4.4); LYMPH % 13.5 % (27.0-41.0); MEAN CELL VOLUME 93.1 fl (80.0-94.0); MEAN CORPUSCULAR HGB 30.9 pg (27.0-31.0); MEAN CORPUSCULAR HGB CONC 33.2 g/dl (33.0-37.0); MEAN PLATELET VOLUME 9.3 fl (9.6-12.3); MONO # 1.3 10*3/uL (0.1-1.0); MONO % 13.2 % (3.0-9.0); NEUT # 6.9 10*3/uL (2.3-7.9); PLATELET COUNT AUTOMATED 259 10*3/uL (130-400); RED BLOOD COUNT 3.04 10*6/uL (4.50-5.90); RED CELL DISTRI WIDTH 13.9 % (0-14.5)
[2017-11-07 19:55] LABS: BILIRUBIN NEGATIVE (NEGATIVE); BLOOD 3+ (NEGATIVE); CLARITY TURBID (CLEAR); COLOR YELLOW (YELLOW); GLUCOSE NEGATIVE (NEGATIVE); KETONE NEGATIVE (NEGATIVE); LEUKO ESTERASE 3+ (NEGATIVE); NITRITE NEGATIVE (NEGATIVE); SPECIFIC GRAVITY 1.025 (1.005-1.030); UROBILINOGEN 0.2 E.U./dl (0.2-1.0)
[2017-11-07 20:06] LABS: BACTERIA 4+; MUCOUS 4+; RBC TNTC rbc/hpf (0-2); WBC TNTC wbc/hpf (0-5)
[2017-11-07 20:10] LABS: ALKALINE PHOSPHATASE 108 U/L (45-117); BUN 25 mg/dl (7-24); CHLORIDE 101 mmol/L (98-107); CREATININE 1.19 mg/dL (0.70-1.30); POTASSIUM 4.9 mmol/L (3.5-5.1); SGOT/AST 11 IU/L (3-35); SGPT/ALT 18 U/L (12-78); SODIUM 133 mmol/L (136-145); TOTAL PROTEIN 5.9 gm/dL (6.4-8.2)
[2017-11-07 21:20] VITALS: BP 140/60
== END 2017-11-07 21:41 | disposition short-term general hospital (02) ==
LOC: ED 18:37
PROVIDERS: Nurse Practitioner Family
DX: N39.0 Urinary tract infection, site not specified (principal); Z87.891 Personal history of nicotine dependence; Z98.890 Other specified postprocedural states; Z96.643 Presence of artificial hip joint, bilateral; Z79.899 Other long term (current) drug therapy; Z88.5 Allergy status to narcotic agent; Z88.6 Allergy status to analgesic agent

== ENCOUNTER 2017-12-19 07:51 | Inpatient (IN) | payer OTHER ==
[~2017-12-19] VITALS: Ht 182.9 cm; Wt 94.4 kg
--- NOTE | ~2017-12-19 | O ---
[place], [place] OPERATIVE NOTE NAME: RAYMUNDO DAUGHERTY UNIT #: [id number] ROOM: 525 DOCTOR: MANE MCGINNIS MD BIRTHDATE: [birth year] DOS: 12/23/2017 GASTROENDOSCOPIC REPORT HISTORY OF PRESENT ILLNESS: An 87-year-old patient who presented with chief complaint of anemia, diarrhea, guaiac positivity, dyspepsia as well as C. diff positivity that recently has been found. PROCEDURE: Today's procedure part of investigation is panendoscopy plus biopsy. PREMEDICATION: Versed and Diprivan. SCOPE: Olympus forward-viewing gastroscope Q10 video. REPORT: After putting the patient in left lateral position and application of lubricant to the scope, the scope was introduced. Thereafter, under direct visualization, I advanced through the length of esophagus without difficulty. Esophagus, cervical, thoracic distally carefully examined and evidence of reflux esophagitis was noticed. Gastric pouch was entered in mid lesser curvature ulceration which is as large as dime with raised borders was noticed. This ulceration was biopsied multiple times. Ruling out dysplastic cells. Gastric pouch consistent with gastritis. Duodenal bulb, second and third part within normal limits. The patient extubated, tolerated procedure well. IMPRESSION: Gastric ulcer in mid lesser curvature, gastritis, reflux esophagitis. PLAN AND DISCUSSION: Resuming soft diet. Continue with PPI therapy despite the fact that we have chance of continuation or extension of the course of C. diff colitis; however, we are going to treat him 2 weeks with vancomycin and eventually he needs a colonoscopy as well. At the present time, gastric ulcer, suspected for carcinoma is going to be a point of concern. Awaiting biopsy results. [place], [place] OPERATIVE NOTE NAME: RAYMUNDO DAUGHERTY UNIT #: [id number] ROOM: 525 DOCTOR: MANE MCGINNIS MD BIRTHDATE: [birth year] MANE MCGINNIS MD CM:OPRECORD:OPERATIVE NOTE 1345 [id number] MANE MCGINNIS MD 12/23/17 1429 interface
--- NOTE | ~2017-12-19 | CON ---
[place], [place] REPORT OF CONSULTATION NAME: RAYMUNDO DAUGHERTY UNIT #: [id number] ROOM: 525 DOCTOR: MANE MCGINNIS MD BIRTHDATE: [birth year] DOS: 12/20/2017 GASTROENTESTINAL CONSULTATION REPORT HISTORY OF PRESENT ILLNESS: An 87-year-old patient who has presented with change in mental status, was admitted on 12/19/2017 with concern of change in mental status. His history of lab records shows white blood cell was 15.7 at that time and H and H of 10 and 31. His lactic acid was 1.1. Urinalysis was active for nitrites. Comprehensive metabolic panel BUN and creatinine, liver function test normal, low protein and low albumin was noticed. Troponin negative. Basic metabolic panel was readdressed. Chest x-ray subtle left basilar opacities was noticed. Urine culture greater than 100,000 bacteria was noticed. MRSA positivity of nares and occult blood positivity of the stool was confirmed. PAST MEDICAL HISTORY: Associated with BPH, urinary retention, history of major depression, metabolic encephalopathy, hypertension, borderline anemia, third degree heart block history. PAST SURGICAL HISTORY: Left hip and right hip prosthesis, tonsillectomy and minor operation. SOCIAL HISTORY: Passive smoker, social alcohol consumer. FAMILY HISTORY: Noncontributory. ALLERGIES: PERCOCET. MEDICATIONS: List at home was reviewed. He has been on iron supplementation, probiotics as reviewed otherwise. No anticoagulant. No antiplatelets. REVIEW OF SYSTEMS: HEENT: Denies double vision, blurry vision. RESPIRATORY: Denies shortness of breath. CARDIOVASCULAR: Denies chest pain. DIGESTIVE SYSTEM: No hematemesis, no hematochezia. PHYSICAL EXAMINATION: GENERAL: Relatively well nourished. HEENT: Head normocephalic, nontraumatic. Mouth and buccal mucosa benign. NECK: Supple, no thyromegaly, no cervical lymphadenopathy. CHEST: Symmetric anatomy, equal expansion. No wheeze, no rhonchi. HEART: Normal sinus rhythm, no gallop, no murmur. ABDOMEN: Soft. No hepato-organomegaly. Bowel sounds present. No pulsatile mass. EXTREMITIES: No cyanosis, no pedal edema. NEUROLOGIC: Appears to be alert partially and partially oriented as well. IMPRESSION: Borderline anemia, urosepsis, metabolic encephalopathy, I see a third-degree block on the records. [place], [place] REPORT OF CONSULTATION NAME: RAYMUNDO DAUGHERTY UNIT #: [id number] ROOM: 525 DOCTOR: RAS QUESADA,MANE BIRTHDATE: [birth year] OTHER ADJUNCTIVE DIAGNOSES: As outlined in past medical, surgical history. PLAN AND DISCUSSION: Antibiotic therapy for UTI, correction of encephalopathy as far as the guaiac positivity. This can be addressed at a later time when issues at hand, particularly the third-degree heart block is addressed. We need an EKG, follow up in Cardiology followup if that is the case. I do not have access to those data right now and his troponin has been negative, however. As far as EGD and colonoscopy that he requires I have questioned him. He cannot answer me if he has had a recent colonoscopy or not and we are in no rollins right now to address endoscopy. I recommend a cardiology consult, otherwise for third-degree block. MANE MCGINNIS MD CM:CONSTR:REPORT OF CONSULTATION 1619 12/21/17 0241 interface
[2017-12-19 07:54] VITALS: BP 105/70
[2017-12-19 08:20] LABS: BILIRUBIN NEGATIVE (NEGATIVE); BLOOD 3+ (NEGATIVE); CLARITY CLOUDY (CLEAR); COLOR YELLOW (YELLOW); GLUCOSE NEGATIVE (NEGATIVE); KETONE NEGATIVE (NEGATIVE); LEUKO ESTERASE 2+ (NEGATIVE); NITRITE POSITIVE (NEGATIVE); PH 8.5 (5.0-9.0); SPECIFIC GRAVITY 1.015 (1.005-1.030); UROBILINOGEN 0.2 E.U./dl (0.2-1.0)
[2017-12-19 08:23] LABS: BASO % 0.3 % (0.0-1.0); EOS # 0.1 10*3/uL (0.0-0.4); EOS % 0.4 % (1.0-4.0); HEMATOCRIT 31.8 % (42.0-52.0); HEMOGLOBIN 10.4 g/dl (14.0-18.0); LYMPH # 0.5 10*3/uL (1.3-4.4); LYMPH % 3.4 % (27.0-41.0); MEAN CELL VOLUME 92.2 fl (80.0-94.0); MEAN CORPUSCULAR HGB 30.1 pg (27.0-31.0); MEAN CORPUSCULAR HGB CONC 32.7 g/dl (33.0-37.0); MEAN PLATELET VOLUME 9.5 fl (9.6-12.3); MONO # 1.1 10*3/uL (0.1-1.0); MONO % 6.9 % (3.0-9.0); NEUT # 13.9 10*3/uL (2.3-7.9); NEUT % 88.6 % (47.0-73.0); PLATELET COUNT AUTOMATED 180 10*3/uL (130-400); RED BLOOD COUNT 3.45 10*6/uL (4.50-5.90); RED CELL DISTRI WIDTH 16.7 % (0-14.5); WHITE BLOOD COUNT 15.7 10*3/uL (4.8-10.8)
[2017-12-19 08:31] LABS: RBC TNTC rbc/hpf (0-2); WBC TNTC wbc/hpf (0-5)
[2017-12-19 08:38] LABS: ALBUMIN 2.8 gm/dl (3.1-4.5); ALKALINE PHOSPHATASE 92 U/L (45-117); BUN 25 mg/dl (7-24); CHLORIDE 106 mmol/L (98-107); CREATININE 1.13 mg/dL (0.70-1.30); POTASSIUM 4.8 mmol/L (3.5-5.1); SGOT/AST 11 IU/L (3-35); SGPT/ALT 17 U/L (12-78); SODIUM 137 mmol/L (136-145); TOTAL PROTEIN 6.3 gm/dL (6.4-8.2)
[2017-12-19 08:42] LABS: TROPONIN I < 0.015 ng/ml (<0.045)
[2017-12-19] MEDS ORDERED: AMLODIPINE BESY10 MG PO (09:05)
[2017-12-19] MEDS ORDERED: DITROPAN XL5 MG PO (09:06)
[2017-12-19] MEDS ORDERED: ERGOCAL2500 UNIT PO (09:06)
[2017-12-19] MEDS ORDERED: IRON325 M1 PO (09:07)
[2017-12-19] MEDS ORDERED: PROZAC20 MG PO (09:08)
[2017-12-19] MEDS ORDERED: FLOMAX0.4 MG PO (09:08)
[2017-12-19] MEDS ORDERED: LISINOPRIL20 MG PO (09:09)
[2017-12-19] MEDS ORDERED: NEURONTIN300 MG PO (09:09)
[2017-12-19] MEDS ORDERED: SYNTHROID25 MCG PO (09:09)
[2017-12-19] MEDS ORDERED: PROBIOTIC250 MG PO (09:10)
[2017-12-19] MEDS ORDERED: POTASSIUM CHLO20 ME3 PO (09:10)
[2017-12-19 09:45] VITALS: BP 99/88
[2017-12-19 12:00] VITALS: BP 120/56
[2017-12-19 17:13] VITALS: BP 140/70
[2017-12-19 20:00] VITALS: BP 145/59
[2017-12-20] VITALS: BP 151/62
[2017-12-20 07:10] LABS: ACT PARTIAL THROMBO TIME 26.5 SECONDS (20.8-31.5)
[2017-12-20 07:12] LABS: BASO # 0.1 10*3/uL (0.0-0.1); BASO % 0.5 % (0.0-1.0); EOS # 0.2 10*3/uL (0.0-0.4); EOS % 1.9 % (1.0-4.0); HEMATOCRIT 29.8 % (42.0-52.0); HEMOGLOBIN 9.7 g/dl (14.0-18.0); LYMPH # 1.9 10*3/uL (1.3-4.4); LYMPH % 19.2 % (27.0-41.0); MEAN CELL VOLUME 94.9 fl (80.0-94.0); MEAN CORPUSCULAR HGB 30.9 pg (27.0-31.0); MEAN CORPUSCULAR HGB CONC 32.6 g/dl (33.0-37.0); MEAN PLATELET VOLUME 9.6 fl (9.6-12.3); MONO # 1.1 10*3/uL (0.1-1.0); MONO % 10.7 % (3.0-9.0); NEUT # 6.6 10*3/uL (2.3-7.9); NEUT % 67.3 % (47.0-73.0); PLATELET COUNT AUTOMATED 181 10*3/uL (130-400); RED BLOOD COUNT 3.14 10*6/uL (4.50-5.90); RED CELL DISTRI WIDTH 16.8 % (0-14.5); WHITE BLOOD COUNT 9.8 10*3/uL (4.8-10.8)
[2017-12-20 07:15] LABS: ALBUMIN 2.4 gm/dl (3.1-4.5); BUN 24 mg/dl (7-24); CHLORIDE 114 mmol/L (98-107); CREATININE 1.01 mg/dL (0.70-1.30); PHOSPHOROUS 2.3 mg/dL (2.5-4.9); POTASSIUM 4.2 mmol/L (3.5-5.1); SGPT/ALT 14 U/L (12-78); SODIUM 142 mmol/L (136-145)
[2017-12-20 07:22] LABS: ALKALINE PHOSPHATASE 81 U/L (45-117); FREE T4 1.14 ng/dl (0.76-1.46); SGOT/AST 9 IU/L (3-35); TOTAL PROTEIN 5.6 gm/dL (6.4-8.2)
[2017-12-20 08:00] VITALS: BP 138/62
[2017-12-20 08:01] LABS: VITAMIN D, 25-HYDROXY 26.4 ng/mL (30-100)
[2017-12-20 12:00] VITALS: BP 136/54
[2017-12-20 16:00] VITALS: BP 160/62
[2017-12-20 20:00] VITALS: BP 169/62
[2017-12-21] VITALS: BP 169/62
[2017-12-21 06:13] LABS: BASO # 0.1 10*3/uL (0.0-0.1); BASO % 0.6 % (0.0-1.0); EOS # 0.2 10*3/uL (0.0-0.4); EOS % 2.6 % (1.0-4.0); HEMATOCRIT 32.5 % (42.0-52.0); HEMOGLOBIN 10.9 g/dl (14.0-18.0); LYMPH # 2.1 10*3/uL (1.3-4.4); LYMPH % 25.1 % (27.0-41.0); MEAN CELL VOLUME 93.4 fl (80.0-94.0); MEAN CORPUSCULAR HGB 31.3 pg (27.0-31.0); MEAN CORPUSCULAR HGB CONC 33.5 g/dl (33.0-37.0); MEAN PLATELET VOLUME 9.7 fl (9.6-12.3); MONO # 1.1 10*3/uL (0.1-1.0); MONO % 13.2 % (3.0-9.0); NEUT # 4.8 10*3/uL (2.3-7.9); NEUT % 57.7 % (47.0-73.0); PLATELET COUNT AUTOMATED 199 10*3/uL (130-400); RED BLOOD COUNT 3.48 10*6/uL (4.50-5.90); RED CELL DISTRI WIDTH 16.4 % (0-14.5); WHITE BLOOD COUNT 8.3 10*3/uL (4.8-10.8)
[2017-12-21 06:28] LABS: BUN 17 mg/dl (7-24); CHLORIDE 110 mmol/L (98-107); PHOSPHOROUS 2.3 mg/dL (2.5-4.9); SODIUM 139 mmol/L (136-145)
[2017-12-21 08:00] VITALS: BP 136/68
[2017-12-21 12:00] VITALS: BP 144/58
[2017-12-21 16:00] VITALS: BP 150/61
[2017-12-21 20:00] VITALS: BP 140/60
[2017-12-22] VITALS: BP 157/65
[2017-12-22 06:42] LABS: BASO # 0.1 10*3/uL (0.0-0.1); BASO % 0.5 % (0.0-1.0); EOS # 0.3 10*3/uL (0.0-0.4); EOS % 2.8 % (1.0-4.0); HEMATOCRIT 29.7 % (42.0-52.0); HEMOGLOBIN 9.9 g/dl (14.0-18.0); LYMPH # 1.9 10*3/uL (1.3-4.4); LYMPH % 20.9 % (27.0-41.0); MEAN CELL VOLUME 93.1 fl (80.0-94.0); MEAN CORPUSCULAR HGB CONC 33.3 g/dl (33.0-37.0); MEAN PLATELET VOLUME 9.3 fl (9.6-12.3); MONO # 1.2 10*3/uL (0.1-1.0); NEUT # 5.7 10*3/uL (2.3-7.9); NEUT % 61.9 % (47.0-73.0); PLATELET COUNT AUTOMATED 194 10*3/uL (130-400); RED BLOOD COUNT 3.19 10*6/uL (4.50-5.90); RED CELL DISTRI WIDTH 16.4 % (0-14.5); WHITE BLOOD COUNT 9.2 10*3/uL (4.8-10.8)
[2017-12-22 07:07] LABS: BUN 20 mg/dl (7-24); CHLORIDE 112 mmol/L (98-107); CREATININE 0.89 mg/dL (0.70-1.30); PHOSPHOROUS 2.7 mg/dL (2.5-4.9); POTASSIUM 4.2 mmol/L (3.5-5.1); SODIUM 141 mmol/L (136-145)
[2017-12-22 08:00] VITALS: BP 142/58
[2017-12-22 12:00] VITALS: BP 130/58
[2017-12-22 16:00] VITALS: BP 142/58
[2017-12-22 20:00] VITALS: BP 168/65
[2017-12-23] VITALS (10 sets, daily range): BP systolic 126–187; BP diastolic 50–81
[2017-12-23 06:36] LABS: BASO # 0.1 10*3/uL (0.0-0.1); BASO % 0.7 % (0.0-1.0); EOS # 0.1 10*3/uL (0.0-0.4); EOS % 0.7 % (1.0-4.0); HEMATOCRIT 28.8 % (42.0-52.0); HEMOGLOBIN 9.5 g/dl (14.0-18.0); LYMPH # 2.3 10*3/uL (1.3-4.4); LYMPH % 24.6 % (27.0-41.0); MEAN CELL VOLUME 93.2 fl (80.0-94.0); MEAN CORPUSCULAR HGB 30.7 pg (27.0-31.0); MONO # 1.4 10*3/uL (0.1-1.0); MONO % 14.9 % (3.0-9.0); NEUT # 5.3 10*3/uL (2.3-7.9); PLATELET COUNT AUTOMATED 190 10*3/uL (130-400); RED BLOOD COUNT 3.09 10*6/uL (4.50-5.90); RED CELL DISTRI WIDTH 16.4 % (0-14.5); WHITE BLOOD COUNT 9.1 10*3/uL (4.8-10.8)
[2017-12-24 00:28] VITALS: BP 161/71
[2017-12-24 06:24] LABS: BASO % 0.4 % (0.0-1.0); EOS # 0.1 10*3/uL (0.0-0.4); EOS % 0.9 % (1.0-4.0); HEMOGLOBIN 9.6 g/dl (14.0-18.0); LYMPH # 2.5 10*3/uL (1.3-4.4); LYMPH % 22.2 % (27.0-41.0); MEAN CORPUSCULAR HGB 30.1 pg (27.0-31.0); MEAN PLATELET VOLUME 9.1 fl (9.6-12.3); MONO # 1.3 10*3/uL (0.1-1.0); MONO % 11.8 % (3.0-9.0); NEUT # 7.1 10*3/uL (2.3-7.9); NEUT % 62.9 % (47.0-73.0); PLATELET COUNT AUTOMATED 192 10*3/uL (130-400); RED BLOOD COUNT 3.19 10*6/uL (4.50-5.90); RED CELL DISTRI WIDTH 16.3 % (0-14.5); WHITE BLOOD COUNT 11.3 10*3/uL (4.8-10.8)
[2017-12-24 08:00] VITALS: BP 164/74
[2017-12-24 12:00] VITALS: BP 132/61
[2017-12-24] MEDS ORDERED: ZOSYN 3.373.375 GM/5 IV (14:12)
[2017-12-24] MEDS ORDERED: VANCOMYCIN250 MG/2.5 PO (14:14)
[2017-12-24 16:00] VITALS: BP 143/63
[2017-12-24 20:00] VITALS: BP 153/58
[2017-12-25] VITALS: BP 143/56
[2017-12-25 06:23] LABS: BASO % 0.4 % (0.0-1.0); EOS # 0.3 10*3/uL (0.0-0.4); EOS % 2.4 % (1.0-4.0); HEMATOCRIT 28.5 % (42.0-52.0); HEMOGLOBIN 9.1 g/dl (14.0-18.0); LYMPH # 2.6 10*3/uL (1.3-4.4); LYMPH % 24.1 % (27.0-41.0); MEAN CELL VOLUME 93.8 fl (80.0-94.0); MEAN CORPUSCULAR HGB 29.9 pg (27.0-31.0); MEAN CORPUSCULAR HGB CONC 31.9 g/dl (33.0-37.0); MEAN PLATELET VOLUME 9.6 fl (9.6-12.3); MONO # 1.2 10*3/uL (0.1-1.0); MONO % 11.5 % (3.0-9.0); NEUT # 6.4 10*3/uL (2.3-7.9); NEUT % 60.1 % (47.0-73.0); PLATELET COUNT AUTOMATED 198 10*3/uL (130-400); RED BLOOD COUNT 3.04 10*6/uL (4.50-5.90); RED CELL DISTRI WIDTH 16.2 % (0-14.5); WHITE BLOOD COUNT 10.7 10*3/uL (4.8-10.8)
[2017-12-25 06:50] LABS: BUN 22 mg/dl (7-24); CHLORIDE 111 mmol/L (98-107); POTASSIUM 4.6 mmol/L (3.5-5.1); SGOT/AST 24 IU/L (3-35); SGPT/ALT 24 U/L (12-78); SODIUM 139 mmol/L (136-145)
[2017-12-25 06:53] LABS: ALKALINE PHOSPHATASE 71 U/L (45-117); CREATININE 0.83 mg/dL (0.70-1.30); TOTAL PROTEIN 5.3 gm/dL (6.4-8.2)
[2017-12-25 08:00] VITALS: BP 150/62
[2017-12-25 12:00] VITALS: BP 143/55
[2017-12-25 16:00] VITALS: BP 154/66
[2017-12-25 20:00] VITALS: BP 171/72
[2017-12-26] VITALS: BP 146/73
[2017-12-26 08:00] VITALS: BP 153/68
[2017-12-26] MEDS ORDERED: VANCOMYCIN250 MG/2.5 PO (10:53)
[2017-12-26 12:00] VITALS: BP 156/65
== END 2017-12-26 16:09 | disposition other institution (70) | DRG 871 ==
LOC: ED 07:51 → 5E 08:35 → EDHOLD 08:35 → 5E 08:51
PROVIDERS: Internal Medicine; Internal Medicine Hospice and Palliative Medicine; Student in an Organized Health Care Education/Training Program
PROC: 0DB68ZX Excision of Stomach, Via Natural or Artificial Opening Endoscopic, Diagnostic (ICD-10-PCS; principal; 2017-12-23)
DX: A41.9 Sepsis, unspecified organism (principal); G93.41 Metabolic encephalopathy; E43 Unspecified severe protein-calorie malnutrition; A04.72 Enterocolitis due to Clostridium difficile, not specified as recurrent; N39.0 Urinary tract infection, site not specified; G91.2 (Idiopathic) normal pressure hydrocephalus; G62.9 Polyneuropathy, unspecified; F33.9 Major depressive disorder, recurrent, unspecified; N40.1 Benign prostatic hyperplasia with lower urinary tract symptoms; R65.20 Severe sepsis without septic shock; D50.8 Other iron deficiency anemias; Z66 Do not resuscitate; Z51.5 Encounter for palliative care; R73.9 Hyperglycemia, unspecified; I10 Essential (primary) hypertension; E83.39 Other disorders of phosphorus metabolism; K25.9 Gastric ulcer, unspecified as acute or chronic, without hemorrhage or perforation; Z96.643 Presence of artificial hip joint, bilateral; B96.20 Unspecified Escherichia coli [E. coli] as the cause of diseases classified elsewhere; Z87.891 Personal history of nicotine dependence; Z86.79 Personal history of other diseases of the circulatory system; Z88.6 Allergy status to analgesic agent; Z79.899 Other long term (current) drug therapy; Z68.28 Body mass index [BMI] 28.0-28.9, adult

== ENCOUNTER 2018-01-22 05:48 | Inpatient (IN) | payer OTHER, MEDICAID ==
[2018-01-22] VITALS (18 sets, daily range): BP systolic 89–144; BP diastolic 34–108
[~2018-01-22] VITALS: Ht 185.4 cm; Wt 99.8 kg
[~2018-01-22 05:48] MED LIST changes: +DITROPAN XL5 MG PO; +ERGOCAL2500 UNIT PO; +IRON325 M1 PO; +POTASSIUM CHLO20 ME3 PO; +PROBIOTIC250 MG PO; +PROZAC20 MG PO; +SYNTHROID25 MCG PO; +VANCOMYCIN250 MG/2.5 PO; +ZOSYN 3.373.375 GM/5 IV
[2018-01-22 06:10] LABS: HEMATOCRIT 30.6 % (42.0-52.0); HEMOGLOBIN 9.5 g/dl (14.0-18.0); MEAN CELL VOLUME 94.7 fl (80.0-94.0); MEAN CORPUSCULAR HGB 29.4 pg (27.0-31.0); MEAN PLATELET VOLUME 10.2 fl (9.6-12.3); PLATELET COUNT AUTOMATED 153 10*3/uL (130-400); RED BLOOD COUNT 3.23 10*6/uL (4.50-5.90); RED CELL DISTRI WIDTH 16.6 % (0-14.5); WHITE BLOOD COUNT 14.2 10*3/uL (4.8-10.8)
[2018-01-22 06:26] LABS: ALBUMIN 2.9 gm/dl (3.1-4.5); ALKALINE PHOSPHATASE 100 U/L (45-117); CHLORIDE 110 mmol/L (98-107); CREATININE 2.91 mg/dL (0.70-1.30); SGOT/AST 39 IU/L (3-35); SGPT/ALT 45 U/L (12-78); SODIUM 138 mmol/L (136-145); TOTAL PROTEIN 6.7 gm/dL (6.4-8.2)
[2018-01-22 06:27] LABS: TOTAL CELLS COUNTED 100 #CELLS
[2018-01-22 06:28] LABS: BURR CELLS FEW; PLATELET SUFFICIENCY NORMAL (NORMAL); POLYCHROMASIA SLIGHT
[2018-01-22 06:52] LABS: BILIRUBIN NEGATIVE (NEGATIVE); BLOOD 3+ (NEGATIVE); CLARITY CLOUDY (CLEAR); COLOR YELLOW (YELLOW); GLUCOSE NEGATIVE (NEGATIVE); KETONE NEGATIVE (NEGATIVE); LEUKO ESTERASE 3+ (NEGATIVE); NITRITE POSITIVE (NEGATIVE); PH 8.5 (5.0-9.0); SPECIFIC GRAVITY 1.015 (1.005-1.030); UROBILINOGEN 0.2 E.U./dl (0.2-1.0)
[2018-01-22 06:58] LABS: BUN 41 mg/dl (7-24)
[2018-01-22 06:59] LABS: TROPONIN I < 0.015 ng/ml (<0.045)
[2018-01-22 07:00] LABS: POTASSIUM 7.4 mmol/L (3.5-5.1)
[2018-01-22 07:06] LABS: BACTERIA 4+; WBC TNTC wbc/hpf (0-5)
[2018-01-22 07:07] LABS: RBC 41-50 rbc/hpf (0-2)
[2018-01-22] MEDS ORDERED: SEPTDS PO ×2 (14:17→14:18)
[2018-01-22] MEDS ORDERED: PROTONIX40 MG PO (14:18)
== END 2018-01-22 13:43 | disposition hospice, home (50) | DRG 871 ==
LOC: ED 05:48 → EDHOLD 08:50 → ED 08:50 → 5E 09:54
PROVIDERS: Student in an Organized Health Care Education/Training Program
DX: A41.4 Sepsis due to anaerobes (principal); R65.21 Severe sepsis with septic shock; I44.2 Atrioventricular block, complete; I95.9 Hypotension, unspecified; G91.2 (Idiopathic) normal pressure hydrocephalus; G62.9 Polyneuropathy, unspecified; E87.5 Hyperkalemia; E78.5 Hyperlipidemia, unspecified; I10 Essential (primary) hypertension; F32.9 Major depressive disorder, single episode, unspecified; M17.12 Unilateral primary osteoarthritis, left knee; N40.0 Benign prostatic hyperplasia without lower urinary tract symptoms; Z96.643 Presence of artificial hip joint, bilateral; Z66 Do not resuscitate; Z51.5 Encounter for palliative care; Z88.6 Allergy status to analgesic agent; Z87.891 Personal history of nicotine dependence; Z79.899 Other long term (current) drug therapy; Z87.440 Personal history of urinary (tract) infections

== ENCOUNTER 2018-01-22 13:51 | Inpatient (IN) | payer OTHER, MEDICAID ==
[~2018-01-22] VITALS: Ht 172.7 cm; Wt 92.8 kg
[2018-01-22] MEDS ORDERED: SEPTDS PO ×2 (14:17→14:18)
[2018-01-22] MEDS ORDERED: PROTONIX40 MG PO (14:18)
== END 2018-01-22 16:00 | disposition expired | DRG 871 ==
LOC: 5E 13:51
DX: A41.4 Sepsis due to anaerobes (principal); R65.21 Severe sepsis with septic shock; I44.2 Atrioventricular block, complete; G91.2 (Idiopathic) normal pressure hydrocephalus; E87.5 Hyperkalemia; Z51.5 Encounter for palliative care; Z66 Do not resuscitate; N40.0 Benign prostatic hyperplasia without lower urinary tract symptoms; I10 Essential (primary) hypertension; F32.9 Major depressive disorder, single episode, unspecified; G62.9 Polyneuropathy, unspecified; M17.12 Unilateral primary osteoarthritis, left knee; Z96.653 Presence of artificial knee joint, bilateral; Z90.89 Acquired absence of other organs; Z87.440 Personal history of urinary (tract) infections; Z87.891 Personal history of nicotine dependence; Z88.6 Allergy status to analgesic agent; Z79.899 Other long term (current) drug therapy